=== PATIENT | male | born 1990 | race Caucasian/White ===

== ENCOUNTER 2021-07-14 08:30 | Emergency (ER) | payer OTHER ==
[~2021-07-14] VITALS: Ht 165.1 cm; Wt 77.2 kg
[2021-07-14 08:40] VITALS: BP 126/67
[2021-07-14] MEDS ORDERED: TETANUS AND DIPHTHERIA TOX/PF 0.5 ML DISP.SYRIN. VAX IM ONE (08:45)
[2021-07-14] MEDS ORDERED: LIDOCAINE 1% Multi-Dose 20 ML VIAL. INJ ONE (08:45)
--- NOTE | 2021-07-14 08:52 | PHYS DOC ---
Past Medical History Smoking Status: Current Every Day Smoker Alcohol Use: Rarely General Adult EDM: Chief Complaint: HAND PROBLEM HPI: HPI: Patient is a 30 year old male without pertinent past medical history who presents with an injury to his left fourth finger. It was unloading a trailer when he smashed his left fourth finger in the trailer door. He noted a cut and bleeding just proximal to his fingernail on the dorsal aspect of the hand. He bandaged it and presented to the hospital. Unsure of last tetanus. No other injuries. Review of Systems: Review of Systems: Constitutional: Denies fever or chills. [] Eyes: Denies change in visual acuity. [] HENT: Denies nasal congestion or sore throat. [] Respiratory: Denies cough or shortness of breath. [] Cardiovascular: Denies chest pain or edema. [] GI: Denies abdominal pain, nausea, vomiting, bloody stools or diarrhea. [] : Denies dysuria. [] Musculoskeletal: Left fourth finger pain. [] Integument: Denies rash. Left fourth finger laceration. [] Neurologic: Denies headache, focal weakness or sensory changes. [] Endocrine: Denies polyuria or polydipsia. [] Lymphatic: Denies swollen glands. [] Psychiatric: Denies depression or anxiety. [] Heart Score: C/O Chest Pain: N/A Risk Factors: Risk Factors: DM, Current or recent (<one month) smoker, HTN, HLP, family history of CAD, obesity. Risk Scores: Score 0 - 3: 2.5% MACE over next 6 weeks - Discharge Home Score 4 - 6: 20.3% MACE over next 6 weeks - Admit for Clinical Observation Score 7 - 10: 72.7% MACE over next 6 weeks - Early Invasive Strategies Current Medications: Current Medications Medications (Trade) Dose Ordered Sig/Efren Start Time Stop Time Status Last Admin Dose Admin Lidocaine HCl (Lidocaine 1% 20ml Vial) 20 ml 1X ONCE 07/14/21 08:45 07/14/21 08:46 DC Tetanus/ Diphtheria Toxoids (Tenivac Syringe) 0.5 ml ONCE ONCE 07/14/21 08:45 07/14/21 08:46 DC Allergies: Allergies: Allergies Coded Allergies Type Severity Reaction Last Updated Verified No Known Drug Allergies 07/14/21 No Physical Exam: PE: Constitutional: Well developed, well nourished, no acute distress, non-toxic appearance. [] HENT: Normocephalic, atraumatic, bilateral external ears normal, oropharynx moist, no oral exudates, nose normal. [] Eyes: PERRLA, EOMI, conjunctiva normal, no discharge. [] Neck: Normal range of motion, no tenderness, supple, no stridor. [] Cardiovascular:Heart rate regular rhythm, no murmur [] Lungs & Thorax: Bilateral breath sounds clear to auscultation [] Abdomen: Bowel sounds normal, soft, no tenderness, no masses, no pulsatile masses. [] Skin: Warm, dry, no erythema, no rash. [] Back: No tenderness, no CVA tenderness. [] Extremities: No tenderness, no cyanosis, no clubbing, ROM intact, no edema. Left fourth finger with a laceration proximal to the nailbed on the dorsal aspect. Amounting to 1.5 cm length, transverse across the finger. The eponychium and proximal nail fold are intact, however proximal to this the matrix does appear to be protruding through the laceration. Cap refill intact 2sec. sensation to the distal finger intact. tender from the area of the laceration to the finger tip. [] Neurologic: Alert and oriented X 3, normal motor function, normal sensory function, no focal deficits noted. [] Psychologic: Affect normal, judgement normal, mood normal. [] EKG: EKG: [] Radiology/Procedures: Radiology/Procedures: [] Impression: [facility] [address] [place], [place] [id number] IMAGING REPORT Signed PATIENT: VASU DEL CASTILLO ACCOUNT: [id number] : 1990 LOCATION: ER AGE: 30 SEX: M EXAM STATUS: REG ER ORD. PHYSICIAN: COLEEN NAVA MD REASON: smashed L 4th finger tip PROCEDURE: FINGER(S) LEFT XR FINGER(S)_LEFT 2+VIEWS_RT dated 07/14/2021 8:44 AM. History: Reason: smashed L 4th finger tip / Spl. Instructions: / History: Comparison: None. Findings: There is a minimally displaced fracture across the ungual tuft of the ring finger. No other fracture or dislocation is seen. There is no foreign body. Impression: 1. Fracture of ungual tuft of ring finger. Electronically signed by: Susan Chen Jr., MD (07/14/2021 9:04 AM) [id number] DICTATED and SIGNED BY: SUSAN CHEN Jr, MD DATE: 07/14/21 [id number] 0 Course & Med Decision Making: Course & Med Decision Making Pertinent Labs and Imaging studies reviewed. (See chart for details) 30-year-old male presents after smashing his finger and a trailer door. Left fourth finger. He has an ungual tuft fracture on x-ray. Laceration proximal to the nailbed sh ows the matrix protruding through. I attempted to suture this, however the tissue did not hold suture. The shallow laceration was washed out with copious amounts of normal saline. Single layer of Xeroform was placed over the wound. Tube gauze were applied, and splint of the fourth finger was applied. Orthopedic follow-up was given. Keflex given for open tuft fracture. Tdap updated. Dragon Disclaimer: Dragon Disclaimer: This electronic medical record was generated, in whole or in part, using a voice recognition dictation system. Departure Departure Impression: Primary Impression: Open fracture of tuft of distal phalanx of finger Disposition: 01 HOME / SELF CARE / HOMELESS Condition: STABLE Referrals: NO PCP (PCP) ROBERT ARREDONDO Jr. DO Call Dr. Arredondo's office to schedule a follow up for your open finger tuft fracture. Additional Instructions: You fractured your finger. Because it is open you need to take an antibiotic to prevent infection. Please take full prescription of cephalexin (Keflex). If you develop worsening redness, swelling, pain, or drainage from the site, or fever that is a sign of infection and needs to be seen immediately. Keep the area clean and dry. Continue to wear the splint is applied here. Follow-up with orthopedics. Please call Dr. Arredondo's office worsening on Friday to schedule appointment. There is a chance that you will lose your nail on this finger. For pain tylenol and ibuprofen are best used on a schedule. Please alternate between the two. -Tylenol 1000 mg every 6 hours (do not exceed 4000 mg in one day) -Ibuprofen 400 mg every 6 hours. Take with food. Do not take for more than 1 week. Scripts Cephalexin (KEFLEX) 500 Mg Capsule 500 MG PO QID for 5 Days, #20 CAP Prov: COLEEN NAVA MD 07/14/21 COLEEN NAVA MD Jul 14, 2021 08:52
[2021-07-14] MEDS ORDERED: DIPH,PERTUSS(ACELL),TET VAC/PF 0.5 ML SYRINGE. VAX IM ONE (09:00)
--- NOTE | 2021-07-14 09:06 | RAD ---
XR FINGER(S)_LEFT 2+VIEWS_RT dated 07/14/2021 8:44 AM. History: Reason: smashed L 4th finger tip / Spl. Instructions: / History: Comparison: None. Findings: There is a minimally displaced fracture across the ungual tuft of the ring finger. No other fracture or dislocation is seen. There is no foreign body. Impression: 1. Fracture of ungual tuft of ring finger. Electronically signed by: Travis Chen Jr., MD (07/14/2021 9:04 AM) [id number]
[2021-07-14] MEDS ORDERED: CEPH500C PO (09:43)
== END 2021-07-14 09:57 | disposition home or self-care (01) ==
LOC: ER 08:30
DX: S62.635B Displaced fracture of distal phalanx of left ring finger, initial encounter for open fracture (principal); F17.200 Nicotine dependence, unspecified, uncomplicated; W23.0XXA Caught, crushed, jammed, or pinched between moving objects, initial encounter; Y93.89 Activity, other specified; Y92.89 Other specified places as the place of occurrence of the external cause; Y99.8 Other external cause status
CPT/HCPCS: 29130; 73140; 90471; 90715; 99283; J3490